=== PATIENT | female | born 1975 | race Hispanic/Latino ===

== ENCOUNTER → 2022-07-27 | Outpatient (CLI) | payer OTHER ==
[~2022-07-27] MED LIST: LIDOCAINE VISC 2% SOLN 15 ML UDC ONE; LIDOCAINE/PRILOCAINE 2.5-2.5% KIT ONE; MUPIROCIN 2% OINT 22 GM TUBE ONE
[2022-07-29 09:33] LABS: BASOPHILS % 0.6 % (0.0-1.0); EOSINOPHILS # (AUTO) 0.2 (0.0-0.4); EOSINOPHILS % 2.8 % (0.0-6.0); HEMATOCRIT 42.8 % (34.2-44.1); HEMOGLOBIN 13.9 g/dL (12.0-16.0); LYMPHOCYTES % 37.3 % (18.0-39.1); MEAN CORPUSCULAR HEMOGLOBIN 33.3 pg (28-32); MEAN CORPUSCULAR HGB CONC 32.5 g/dL (31-35); MEAN CORPUSCULAR VOLUME 102.4 fL (81-99); MONOCYTES # (AUTO) 0.4 (0.2-0.8); MONOCYTES % 6.9 % (4.4-11.3); NEUTROPHILS # (AUTO) 2.8 (2.1-6.9); NEUTROPHILS % 52.2 % (38.7-80.0); PLATELET COUNT 200 x10e3/uL (140-360); RED BLOOD COUNT 4.18 x10e6/uL (3.6-5.1); RED CELL DISTRIBUTION WIDTH 13.2 % (11.7-14.4)
[2022-07-29 09:47] LABS: ALBUMIN 4.3 g/dL (3.5-5.0); ALBUMIN/GLOBULIN RATIO 1.3 (0.8-2.0); ANION GAP 13.8 mmol/L (8-16); CALCIUM 10.4 mg/dL (8.4-10.2); CREATININE, SERUM 0.7 mg/dL (0.57-1.11); POTASSIUM 3.8 mmol/L (3.5-5.1)
== END ==
LOC: WCC 08:00
PROVIDERS: ATTEND Family Medicine Adult Medicine
DX: T81.89XA Other complications of procedures, not elsewhere classified, initial encounter (principal)
CPT/HCPCS: 36415; 80053; 82948; 83036; 84134; 85025; 87071; 87075; 87205

== ENCOUNTER → 2022-07-29 | Outpatient (CLI) | payer OTHER | LOC: WCC 10:00 | PROVIDERS: ATTEND Family Medicine Adult Medicine | DX: T81.89XA Other complications of procedures, not elsewhere classified, initial encounter (principal) ==

== ENCOUNTER → 2022-07-29 | Outpatient (CLI) | payer OTHER | LOC: LAB 09:08 | PROVIDERS: ATTEND Family Medicine Adult Medicine | DX: T81.89XA Other complications of procedures, not elsewhere classified, initial encounter (principal) ==

== ENCOUNTER → 2022-08-03 | Outpatient (CLI) | payer OTHER | LOC: WCC 08:57 | PROVIDERS: ATTEND Family Medicine Adult Medicine | DX: T81.89XA Other complications of procedures, not elsewhere classified, initial encounter (principal) ==

== ENCOUNTER → 2022-08-05 | Outpatient (CLI) | payer OTHER | LOC: WCC 08:41 | PROVIDERS: ATTEND Family Medicine Adult Medicine | DX: T81.89XA Other complications of procedures, not elsewhere classified, initial encounter (principal) ==

== ENCOUNTER → 2022-08-10 | Outpatient (CLI) | payer OTHER | LOC: WCC 10:01 | PROVIDERS: ATTEND Family Medicine Adult Medicine | DX: T81.89XA Other complications of procedures, not elsewhere classified, initial encounter (principal) ==

== ENCOUNTER → 2022-08-18 | Outpatient (CLI) | payer OTHER | LOC: WCC 11:08 | PROVIDERS: ATTEND Family Medicine Adult Medicine | DX: T81.89XA Other complications of procedures, not elsewhere classified, initial encounter (principal) ==